=== PATIENT | male | born 1975 | race Hispanic/Latino ===

== ENCOUNTER 2018-06-10 21:35 | Emergency (ER) | payer OTHER ==
[2018-06-10] MEDS ORDERED: Sodium Chloride 0.9% 1,000 ML IV STA (22:05)
--- NOTE | 2018-06-10 22:11 | ED PDOC ---
Syncope/Near Syncope/Dizziness Time Seen by Provider: 06/10/18 21:49 Chief Complaint (Nursing): Syncope History Per: Patient Additional Complaint(s): Pt. states earlier today while eating dinner he began to feel weak and had "tunnel vision" to both eyes. During the dinner his was sitting across from him and reports that pt. looked "pale." States that after standing up he felt like he was going to pass out and as per his pt. did fall down but they were able to break his fall and pt. lost consciousness for "3 seconds" and regained full conciousness immediately. As per pt's pt had no convulsion like activity. Pt. states he had 1 beer and 2.5 glasses . Also admits to taking "1/2 edible" marijuana. Reports feeling much better now. Currently asymp tomatic. Denies headache, chest pain, palpitations, weakness, numbness, tingling, incontinence. Past Medical History Reviewed: Historical Data, Nursing Documentation, Vital Signs Vital Signs: Last Vital Signs Temp 97.2 F L 06/10/18 21:40 Pulse 64 06/10/18 21:40 Resp 16 06/10/18 21:40 BP 124/73 06/10/18 21:40 Pulse Ox 98 06/10/18 21:40 - Surgical History Surgical History: Cholecystectomy - Family History Family History: States: No Known Family Hx - Allergies Allergies/Adverse Reactions: Allergies Allergy/AdvReac Type Severity Reaction Status Date / Time shellfish derived Allergy SWELLING Verified 06/10/18 21:40 Review of Systems ROS Statement: Except As Marked, All Systems Reviewed And Found Negative Physical Exam - Reviewed Nursing Documentation Reviewed: Yes Vital Signs Reviewed: Yes - Physical Exam Appears: Positive for: Well, Non-toxic, No Acute Distress Head Exam: Positive for: ATRAUMATIC, NORMAL INSPECTION, NORMOCEPHALIC Skin: Positive for: Normal Color, Warm. Negative for: Rash Eye Exam: Positive for: Normal appearance, EOMI, PERRL. Negative for: Nystagmus ENT: Positive for: Normal ENT Inspection Neck: Positive for: Normal, Painless ROM Cardiovascular/Chest: Positive for: Regular Rate, Rhythm Respiratory: Positive for: CNT, Normal Breath Sounds Gastrointestinal/Abdominal: Positive for: Normal Exam, Soft. Negative for: Tenderness Back: Positive for: Normal Inspection Extremity: Positive for: Normal ROM Neurologic/Psych: Positive for: Alert, Oriented (x3), Gait (steady, unassisted). Negative for: Aphasia, Facial Droop - Laboratory Results Result Diagrams: 06/10/18 22:38 06/10/18 22:38 - ECG ECG: Positive for: Interpreted By Me ECG Rhythm: Positive for: Sinus Bradycardia. Negative for: ST/T Changes Rate: 53 O2 Sat by Pulse Oximetry: 98 - Progress ED Course And Treament: Labs, EKG IV NS bolus x 1 ordered. Pt. placed on monitoring and evaluation advisor. Re-evaluation Time: 23:21 (Offers no complaints at this time. Denies abdominal pain. Informed of lab results and advised to f/u with PMD for further evaluation. ) Condition: Re-examined, Improved Disposition - Clinical Impression Clinical Impression: Syncope - Patient ED Disposition Is Patient to be Admitted: No - Disposition [facility]errals: [facility] [Outside] Disposition: Routine/Home Disposition Time: 23:22 Condition: IMPROVED Additional Instructions: ROSENDO GOLDSTEIN, thank you for letting us take care of you today. Your provider was Paresh Hunter MD and you were treated for SYNCOPE. The emergency medical care you received today was directed at your acute symptoms. If you were prescribed any medication, please fill it and take as directed. It may take several days for your symptoms to resolve. Return to the Emergency Department if your symptoms worsen, do not improve, or if you have any other problems. Please contact your doctor or call one of the physicians/clinics you have been referred to that are listed on the Patient Visit Information form that is included in your discharge packet. Bring any paperwork you were given at discharge with you along with any medications you are taking to your follow up visit. Our treatment cannot replace ongoing medical care by a primary care provider outside of the emergency department. [facility]. If you had an X-Ray or CT scan: A Radiologist will review the ED reading if any change in treatment is needed we will contact you. If you had a blood, urine, or wound culture: It will take several days for the results, if any change in treatment is needed we will contact you. If you had an STI test: It will take 48 hours for the results. Please call after 1 week if you have not heard back. Instructions: Syncope (Fainting) (DC) Forms: [facility] (Icelandic) Print Language: ICELANDIC
[2018-06-10 22:46] LABS: BASO % 0.6 % (0.0-2.0); EOS # 0.2 K/uL (0.0-0.7); EOS % 3.3 % (0.0-4.0); HEMOGLOBIN 15.2 g/dL (12.0-18.0); LYMPH # 2.1 K/uL (1.0-4.3); LYMPH % 29.8 % (20.0-40.0); MEAN CELL VOLUME 94.1 fl (80.0-94.0); MEAN CORPUSCULAR HEMOGLOBIN 32.9 pg (27.0-31.0); MEAN PLATELET VOLUME 7.5 fl (7.2-11.7); MONO # 0.5 K/uL (0.0-0.8); NEUT # 4.1 K/uL (1.8-7.0); NEUT % 59.3 % (50.0-75.0); RBC 4.63 Mil/uL (4.40-5.90); RED CELL DISTRIBUTION WIDTH 12.5 % (11.5-14.5); WHITE BLOOD COUNT 6.9 K/uL (4.8-10.8)
[2018-06-10 22:58] LABS: BLOOD UREA NITROGEN 19 mg/dl (9-20); CALCIUM 8.9 mg/dL (8.4-10.2); GFR NON-AFRICAN AMERICAN > 60
[2018-06-10 23:04] LABS: ALB/GLOB RATIO 1.2 (1.0-2.1); ALBUMIN 4.2 g/dL (3.5-5.0); ALT/SGPT 38 U/L (21-72); AST/SGOT 46 U/L (17-59)
[2018-06-11 03:23] VITALS: BP 129/84; PULSE 78; RESP 20; TEMP 97.4; O2SAT 99
--- NOTE | 2018-06-11 13:46 | CARD ---
APPROVED REPORT Date of service: 06/10/2018 EKG Measurement Heart [id number] <Conclusion> Sinus bradycardia Left axis deviation Abnormal ECG
== END 2018-06-10 23:30 | disposition home or self-care (01) ==
LOC: H.ER 21:35
DX: R55 Syncope and collapse (principal)
CPT/HCPCS: 80053; 80320; 82948; 85025; 93005; 99285; J7030